=== PATIENT | female | born 1960 | race African-American/Black ===

== ENCOUNTER 2017-02-25 07:42 | Outpatient (CLI) | payer OTHER ==
[2017-02-25 08:12] LABS: #Eosinphils 0.2 thou/uL (0.0-0.7); #Monocytes 0.5 thou/uL (0.11-0.59); #Neutrophils 3.1 thou/uL (1.40-6.50); %Basophils 0.6 % (0.0-1.0); %Eosinophils 2.7 % (0.0-10.0); %Monocytes 8.4 % (0.0-10.0); %Neutrophils 53.4 % (42.0-75.0); Hemoglobin 12.2 g/dL (12.0-16.0); MDiff Complete? YES; Manual Diff?? NO; Mean Corpuscular HGB CONC 31.9 g/dL (32.0-36.0); Mean Corpuscular Hemoglobin 28.9 pg (27.0-31.0); Mean Corpuscular Volume 90.6 fl (81.0-99.0); Platelet Count 207 thou/uL (130-400); RBC Distribution Width 12.7 % (11.5-14.5); Red Blood Cell (RBC) Count 4.22 mill/uL (4.20-5.40); White Blood Cell (WBC) Count 5.7 thou/uL (4.8-10.8)
== END 2017-02-25 07:43 ==
LOC: MADLABBHPM 07:42
PROVIDERS: ATTEND Family Medicine
DX: D64.9 Anemia, unspecified (principal)
CPT/HCPCS: 36415; 85025

== ENCOUNTER 2019-05-28 09:51 | Outpatient (CLI) | payer OTHER ==
[2019-05-28 10:47] LABS: Anion Gap 11 mmol/L (10-20); BUN (Urea Nitrogen) 9 mg/dL (9.8-20.1); Calc. Creatinine Clearance 0 mL/min (70-130); Calcium 9.1 mg/dL (7.8-10.44); Carbon Dioxide 27 mmol/L (22-29); Chloride 104 mmol/L (98-107); Estimated GFR-MDRD Greater than 90; Glucose 103 mg/dL (70-105); Potassium 3.7 mmol/L (3.5-5.1); Sodium 138 mmol/L (136-145)
== END 2019-05-28 09:52 | disposition home or self-care (01) ==
LOC: MADLABBHPM 09:51
PROVIDERS: ATTEND Family Medicine
DX: I10 Essential (primary) hypertension (principal)
CPT/HCPCS: 36415; 80048

== ENCOUNTER 2019-08-31 20:04 | Emergency (ER) | payer OTHER ==
[2019-08-31] MEDS ORDERED: Acetaminophen/Codeine 30-300mg Tablet ONE (20:22)
[2019-08-31] MEDS ORDERED: Gabapentin 100 MG CAP ONE (20:23)
[2019-08-31] MEDS ORDERED: Ketorolac Tromethamine 60 MG/2 ML VIAL ONE (20:23)
[2019-08-31] MEDS ORDERED: diphenhydrAMINE 25 MG CAP ONE (21:22)
[2019-08-31] MEDS ORDERED: Cyclobenzaprine 10 MG TAB ONE (22:22)
== END 2019-08-31 23:47 | disposition home or self-care (01) ==
LOC: MADERS 20:04
DX: M54.41 Lumbago with sciatica, right side (principal); I10 Essential (primary) hypertension
CPT/HCPCS: 96372; 99283; J1885; Q0163